=== PATIENT | female | born 1995 | race Caucasian/White ===

== ENCOUNTER → 2019-02-24 | Outpatient (CLI) | payer BC ==
--- NOTE | 2019-02-24 15:40 | Diagnostic Imaging Report ---
INDICATION: Low back pain. Time of exam 1:00 p.m. Five views of the lumbar spine were obtained. FINDINGS: Curvature and alignment of the lumbar spine is normal. Vertebral body heights and disc spaces are fairly well-maintained apart from mild degenerative changes of L5-S1. No fracture or subluxation is seen. There is no spondylolysis or spondylolisthesis. IMPRESSION: Mild L5-S1 degenerative disc disease. No other significant abnormality is detected. Dictated by: Dictated on workstation # [id number]
== END ==
LOC: RAD FS 12:38
PROVIDERS: ATTEND Family Medicine
DX: M51.17 Intervertebral disc disorders with radiculopathy, lumbosacral region (principal)
CPT/HCPCS: 72110

== ENCOUNTER 2021-03-30 22:39 | Emergency (ER) | payer BC, MEDICAID ==
[~2021-03-30] VITALS: Ht 165 cm; Wt 72.0 kg
[2021-03-30 22:52] LABS: BASOPHILS # (AUTO) 0.1 10^3/uL (0.0-0.1); BASOPHILS % (AUTO) 1 % (0-10); EOSINOPHILS # (AUTO) 0.3 10^3/uL (0.0-0.3); EOSINOPHILS % (AUTO) 2 % (0-10); HEMATOCRIT 48 % (35-52); HEMOGLOBIN 17.1 G/DL (11.5-16.0); LYMPHOCYTES % (AUTO) 29 % (12-44); MEAN CORPUSCULAR HEMOGLOBIN 31 PG (25-34); MEAN CORPUSCULAR HGB CONC 36 G/DL (32-36); MEAN CORPUSCULAR VOLUME 88 FL (80-99); MEAN PLATELET VOLUME 10.3 FL (7.4-10.4); MONOCYTES # (AUTO) 0.8 X 10^3 (0.0-1.0); MONOCYTES % (AUTO) 5 % (0-12); NEUTROPHILS # (AUTO) 10.8 X 10^3 (1.8-7.8); NEUTROPHILS % (AUTO) 63 % (42-75); PLATELET COUNT 356 10^3/uL (130-400); WHITE BLOOD COUNT 17.1 10^3/uL (4.3-11.0)
[2021-03-30] MEDS ORDERED: NS IV 1000 ML 1,000 ML IV STA (22:56)
[2021-03-30] MEDS ORDERED: ASPIRIN 81 MG CHEW (CHILDREN'S ASA) PO STA (22:56)
[2021-03-30] MEDS ORDERED: PANTOPRAZOLE 40 MG (PROTONIX) VIAL IV STA (22:57)
[2021-03-30 23:03] LABS: INR 0.9 (0.8-1.4); PROTHROMBIN TIME PATIENT 12.6 SEC (12.2-14.7)
[2021-03-30 23:07] LABS: BACTERIA,URINE TRACE /HPF; BILIRUBIN,URINE NEGATIVE (NEGATIVE); CLARITY,URINE CLEAR; COLOR,URINE DARK YELLOW; GLUCOSE, URINE (UA) 3+ (NEGATIVE); KETONES,URINE NEGATIVE (NEGATIVE); LEUKOCYTE ESTERASE ,URINE NEGATIVE (NEGATIVE); NITRITE,URINE NEGATIVE (NEGATIVE); PROTEIN,URINE NEGATIVE (NEGATIVE); RBC,URINE 25-50 /HPF
[2021-03-30 23:08] LABS: ALANINE AMINOTRANSFERASE 30 U/L (0-55); ALKALINE PHOSPHATASE 166 U/L (40-136); BILIRUBIN,TOTAL 0.2 MG/DL (0.1-1.0); BUN/CREATININE RATIO 13; CALCIUM 9.6 MG/DL (8.5-10.1); CARBON DIOXIDE 25 MMOL/L (21-32); CHLORIDE 97 MMOL/L (98-107); CREATININE SERUM 0.53 MG/DL (0.60-1.30); GFR ESTIMATED > 60; GLUCOSE 373 MG/DL (70-105); SODIUM 137 MMOL/L (135-145); TOTAL PROTEIN 7.3 GM/DL (6.4-8.2)
[2021-03-30 23:09] LABS: ALBUMIN 4.4 GM/DL (3.2-4.5); LIPASE 27 U/L (8-78)
--- NOTE | 2021-03-30 23:10 | ED Chest Pain ---
General Chief Complaint: Chest Pain Stated Complaint: CHEST PAIN Nursing Triage Note: RPEORT CP ALL DAY OFF AND ON THAT LAST FOR ABOUT 5-6 MINS DREA AFTER EATING. SOB AND LEFT ARM TINGLING Nursing Sepsis Screen: No Definite Risk Source: patient, spouse History of Present Illness Date Seen by Provider: Mar 30, 2021 Time Seen by Provider: 22:43 Initial Comments 25-year-old female presenting with intermittent sharp chest pains and left arm tingling throughout the day. She also had shortness of breath when this happened. She would have symptoms worse after eating. It also seem to be worse with sitting at the computer. She had some episodes that would last for a few minutes. She denies any sweating or diaphoresis. She has not had any fever or chills, abdominal pain, headache, blurry vision, pain with urination, diarrhea. Timing/Duration: 24 hours, intermittent, gone now Severity/Quality: moderate Location: substernal Radiation: arms (Left arm) Activities at Onset: none Prior CP/Workup: no prior chest pain, no prior cardiac workup ASA po MANAGER GAMES: No NTG SL MANAGER GAMES: No Associated Symptoms: No abdominal pain, No back pain, No diaphoresis, No dizziness, No edema, No fatigue, No fever/chills, No headache, No nausea/vomiting, No rash; shortness of breath; No swelling/lump in chest, No syncope Allergies and Home Medications Allergies Coded Allergies: No Known Drug Allergies (Unverified , 03/30/21) Patient Home Medication List Home Medication List Reviewed: Yes Review of Systems Review of Systems Constitutional: No chills, No fever EENTM: No Symptoms Reported Respiratory: See HPI Cardiovascular: See HPI Gastrointestinal: See HPI Genitourinary: See HPI Musculoskeletal: see HPI Skin: No rash Psychiatric/Neurological: Anxiety; Denies Headache Endocrine: No Symptoms Reported Past Kdtnwup-Rdvllz-Ivcapr Hx Past Med/Social Hx: Reviewed Nursing Past Med/Soc Hx Patient Social History Alcohol Use: Denies Use Smoking Status: Unknown if Ever Smoked Recent Infectious Disease Expo: No Recent Hopitalizations: No Seasonal Allergies Seasonal Allergies: No Past Medical History Surgeries: No Respiratory: No Cardiac: No Neurological: No Genitourinary: No Gastrointestinal: No Musculoskeletal: No Endocrine: No HEENT: No Cancer: No Psychosocial: No Integumentary: No Blood Disorders: No Physical Exam Vital Signs Vital Signs - First Documented 03/30/21 22:47 Temp 37.1 Pulse 107 Resp 16 B/P (MAP) 157/98 (117) Pulse Ox 99 O2 Delivery Room Air Capillary Refill : Less Than 3 Seconds Height, Weight, BMI Height: '" Weight: lbs. oz. kg; 26.00 BMI Method: General Appearance: No Apparent Distress, WD/WN HEENT: PERRL/EOMI, Pharynx Normal Neck: Full Range of Motion, Non Tender, Supple Respiratory: Chest Non Tender, Lungs Clear, Normal Breath Sounds, No Accessory Muscle Use, No Respiratory Distress Cardiovascular: Normal Peripheral Pulses, Tachycardia Gastrointestinal: Normal Bowel Sounds, No Pulsatile Mass, Non Tender, Soft Rectal: Deferred Extremity: Normal Capillary Refill, Normal Inspection, Normal Range of Motion, Non Tender, No Calf Tenderness, No Pedal Edema Neurologic/Psychiatric: Alert, Oriented x3, gate watch II-XII Norm as Tested Skin: Warm/Dry Progress/Results/Core Measures Results/Orders Lab Results Laboratory Tests Test 03/30/21 22:45 03/30/21 22:57 03/31/21 00:08 Range/Units White Blood Count 17.1 H 4.3-11.0 10^3/uL Red Blood Count 5.43 4.35-5.85 10^6/uL Hemoglobin 17.1 H 11.5-16.0 G/DL Hematocrit 48 35-52 % Mean Corpuscular Volume 88 80-99 FL Mean Corpuscular Hemoglobin 31 25-34 PG Mean Corpuscular Hemoglobin Concent 36 32-36 G/DL Red Cell Distribution Width 11.4 10.0-14.5 % Platelet Count 356 130-400 10^3/uL Mean Platelet Volume 10.3 7.4-10.4 FL Immature Granulocyte % (Auto) 1 % Neutrophils (%) (Auto) 63 42-75 % Lymphocytes (%) (Auto) 29 12-44 % Monocytes (%) (Auto) 5 0-12 % Eosinophils (%) (Auto) 2 0-10 % Basophils (%) (Auto) 1 0-10 % Neutrophils # (Auto) 10.8 H 1.8-7.8 X 10^3 Lymphocytes # (Auto) 5.0 H 1.0-4.0 X 10^3 Monocytes # (Auto) 0.8 0.0-1.0 X 10^3 Eosinophils # (Auto) 0.3 0.0-0.3 10^3/uL Basophils # (Auto) 0.1 0.0-0.1 10^3/uL Immature Granulocyte # (Auto) 0.1 0.0-0.1 10^3/uL Neutrophils % (Manual) 71 % Lymphocytes % (Manual) 26 % Monocytes % (Manual) 2 % Band Neutrophils 1 % Prothrombin Time 12.6 12.2-14.7 SEC INR Comment 0.9 0.8-1.4 Activated Partial Thromboplast Time 26 24-35 SEC Sodium Level 137 135-145 MMOL/L Potassium Level 4.0 3.6-5.0 MMOL/L Chloride Level 97 L 98-107 MMOL/L Carbon Dioxide Level 25 21-32 MMOL/L Anion Gap 15 H 5-14 MMOL/L Blood Urea Nitrogen 7 7-18 MG/DL Creatinine 0.53 L 0.60-1.30 MG/DL Estimat Glomerular Filtration Rate > 60 BUN/Creatinine Ratio 13 Glucose Level 373 H 70-105 MG/DL Calcium Level 9.6 8.5-10.1 MG/DL Corrected Calcium 9.3 8.5-10.1 MG/DL Magnesium Level 2.0 1.6-2.4 MG/DL Total Bilirubin 0.2 0.1-1.0 MG/DL Aspartate Amino Transf (AST/SGOT) 18 5-34 U/L Alanine Aminotransferase (ALT/SGPT) 30 0-55 U/L Alkaline Phosphatase 166 H 40-136 U/L Troponin I < 0.30 <0.30 NG/ML Pro-B-Type Natriuretic Peptide 7.3 <75.0 PG/ML Total Protein 7.3 6.4-8.2 GM/DL Albumin 4.4 3.2-4.5 GM/DL Lipase 27 8-78 U/L Urine Color DARK YELLOW Urine Clarity CLEAR Urine pH 7.0 5-9 Urine Specific Ewen 10.15 1.016-1.022 Urine Protein NEGATIVE NEGATIVE Urine Glucose (UA) 3+ H NEGATIVE Urine Ketones NEGATIVE NEGATIVE Urine Nitrite NEGATIVE NEGATIVE Urine Bilirubin NEGATIVE NEGATIVE Urine Urobilinogen 0.2 < = 1.0 MG/DL Urine Leukocyte Esterase NEGATIVE NEGATIVE Urine RBC (Auto) 3+ H NEGATIVE Urine RBC 25-50 H /HPF Urine WBC NONE /HPF Urine Squamous Epithelial Cells 5-10 /HPF Urine Crystals NONE /LPF Urine Bacteria TRACE /HPF Urine Casts NONE /LPF Urine Mucus NEGATIVE /LPF Urine Culture Indicated NO Urine Opiates Screen NEGATIVE NEGATIVE Urine Oxycodone Screen NEGATIVE NEGATIVE Urine Methadone Screen NEGATIVE NEGATIVE Urine Propoxyphene Screen NEGATIVE NEGATIVE Urine Barbiturates Screen NEGATIVE NEGATIVE Ur Tricyclic Antidepressants Screen NEGATIVE NEGATIVE Urine Phencyclidine Screen NEGATIVE NEGATIVE Urine Amphetamines Screen NEGATIVE NEGATIVE Urine Methamphetamines Screen NEGATIVE NEGATIVE Urine Benzodiazepines Screen NEGATIVE NEGATIVE Urine Cocaine Screen NEGATIVE NEGATIVE Urine Cannabinoids Screen NEGATIVE NEGATIVE Glucometer 288 H 70-110 MG/DL My Orders Orders - AYDE LLANES MD Cbc With Automated Diff (03/30/21 22:44) Magnesium (03/30/21 22:44) Chest 1 View Ap/Pa Only (03/30/21 22:44) Ekg Tracing (03/30/21 22:44) Comprehensive Metabolic Panel (03/30/21 22:44) Protime With Inr (03/30/21 22:44) Partial Thromboplastin Time (03/30/21 22:44) O2 (03/30/21 22:44) Monitor-Rhythm Ecg Trace Only (03/30/21 22:44) Ed Iv/Invasive Line Start (03/30/21 22:44) Lipase (03/30/21 22:44) Troponin I Fs (03/30/21 22:44) Probnp Fs (03/30/21 22:44) Ua Culture If Indicated (03/30/21 22:44) Urine Bedside (03/30/21 22:44) Drug Screen Stat (Urine) (03/30/21 22:44) Manual Differential (03/30/21 22:45) Ns Iv 1000 Ml (Sodium Chloride 0.9%) (03/30/21 22:56) Aspirin Chewable Tablet (Baby Aspirin Ch (03/30/21 22:56) Pantoprazole Injection (Protonix Injecti (03/30/21 22:57) Accucheck Stat ONCE (03/31/21 00:09) Vital Signs/I&O 03/30/21 03/31/21 22:47 00:11 Temp 37.1 36.1 Pulse 107 84 Resp 16 16 B/P (MAP) 157/98 (117) 120/62 Pulse Ox 99 99 O2 Delivery Room Air Room Air Blood Pressure Mean: 117 Progress Progress Note #1: Progress Note Obtain electrocardiogram as well as labs. Placed on cardiac telemetry monitoring. Initial monitoring shows sinus tachycardia without ectopy or ST e levation. Initial electrocardiogram shows sinus tachycardia without ST elevation. We will give IV fluids for hydration, aspirin with her complaint of chest pain, treat for possible GERD as well. The differential diagnosis includes myocardial infarction, pneumonia, cardiac arrhythmia, GERD with esophagitis Progress Note #2: Progress Note Labs appear stable without acute significant immunity. She does have elevated glucose in the 370 range with glucose present in the urine. There are no definite infiltrate or acute process on the chest x-ray on my review of her 1 view chest x-ray film. Patient reports to continue to have no recurrent pain or problems while here in the ED. Her heart rate improved with treatment here in the ED. In regards to her elevated glucose the patient reports that she chronically has that since . A repeat Accu-Chek after fluids and treatment show her sugar was 288 from 373 on the blood work. Encourage patient to follow-up with the clinic she may need to be on medication for hyperglycemia and diabetes. Initial ECG Impression Date: Mar 30, 2021 Initial ECG Impression Time: 22:44 Initial ECG Rate: 109 Initial ECG Rhythm: S.Tach Initial ECG Comparisson: No Previous ECG Available Comment Sinus tachycardia with a heart rate 109 bpm. MI interval 170 ms. QT interval 296 ms with a QTc interval 399 ms. There is no acute ST elevation. No prior tracing available for comparison. Diagnostic Imaging Diagonstic Imaging: Xray Plain Films/CT/US/NM/MRI: chest Comments My review of her 1 view chest x-ray she has no acute infiltrate or no acute process Reviewed: Reviewed by Me Departure Impression Primary Impression: Chest pain at rest Additional Impressions: Hyperglycemia Stress Dehydration Tobacco abuse Disposition: 01 HOME, SELF-CARE Condition: Improved Departure-Patient Inst. Decision time for Depature: 00:10 Referrals: [facility] (PCP) Primary Care Physician HANNAH TOM APRN (Family) Primary Care Physician Patient Instructions: Chest Pain, Adult ED, Dehydration, Adult ED, Hyperglycemia, Adult (DC), Quitting Smoking ED, Stress Add. Discharge Instructions: Try to watch your diet and follow a low fat low sodium diet. Limit the sugar and carbohydrate intake. Check with the clinic for follow up and you would likely benefit from being on a medicine for your elevated glucose. The clinic may want to run some additional testing first but at this point you would count as being diabetic and need to control your diet and probably benefit from medicines. Stopping smoking will help with your breathing and chest pains. All discharge instructions reviewed with patient and/or family. Voiced understanding. AYDE LLANES MD Mar 30, 2021 23:10
[2021-03-30 23:12] LABS: BAND NEUTROPHILS 1 %; LYMPHOCYTES % (MANUAL) 26 %; MONOCYTES % (MANUAL) 2 %; NEUTROPHILS % (MANUAL) 71 %
[2021-03-30 23:14] LABS: AMPHETAMINE SCREEN, URINE NEGATIVE (NEGATIVE); BARBITURATE SCREEN URINE NEGATIVE (NEGATIVE); BENZODIAZEPINES SCREEN URINE NEGATIVE (NEGATIVE); CANNABINOID SCREEN, URINE NEGATIVE (NEGATIVE); COCAINE SCREEN URINE NEGATIVE (NEGATIVE); METHADONE STAT NEGATIVE (NEGATIVE); METHAMPHETAMINE SCREEN URINE S NEGATIVE (NEGATIVE); OPIATE SCREEN URINE NEGATIVE (NEGATIVE); OXYCODONE STAT NEGATIVE (NEGATIVE); PROPOXYPHENE STAT NEGATIVE (NEGATIVE); TRICYCLIC ANTIDEPRESSANTS SCRE NEGATIVE (NEGATIVE)
[2021-03-31 00:11] VITALS: BP 120/62
--- NOTE | 2021-03-31 06:48 | Diagnostic Imaging Report ---
EXAMINATION: Chest radiograph, portable AP view. DATE: 03/30/2021 10:58 PM INDICATION: 25-year-old female, chest pain. COMPARISON: None. FINDINGS: Heart size and mediastinal contours are unremarkable. There is no identified pneumothorax. There is no large pleural effusion. There is no identified focal airspace consolidation. IMPRESSION: No identified acute cardiopulmonary abnormality. Dictated by: Dictated on workstation # [id number]
== END 2021-03-31 00:16 | disposition home or self-care (01) ==
LOC: EDUNIT# 22:39 → ER FS 22:42
DX: R07.9 Chest pain, unspecified (principal); R73.9 Hyperglycemia, unspecified; F43.9 Reaction to severe stress, unspecified; E86.0 Dehydration; F17.200 Nicotine dependence, unspecified, uncomplicated
CPT/HCPCS: 36415; 71045; 80053; 80306; 81000; 82947; 83690; 83735; 83880; 84484; 84703; 85007; 85027; 85610; 85730; 93005; 93041

== ENCOUNTER 2021-04-10 22:54 | Emergency (ER) | payer BC, MEDICAID ==
[~2021-04-10] VITALS: Ht 167.7 cm; Wt 88.0 kg
--- NOTE | 2021-04-10 22:59 | ED Chest Pain ---
General Chief Complaint: Chest Pain Stated Complaint: CP History of Present Illness Date Seen by Provider: Apr 10, 2021 Time Seen by Provider: 22:55 Initial Comments 25 old female presents with chest pain occurring intermittently for the past 2 weeks. Pain is sudden and sharp and lasts from 5 minutes most of the time, but has had an episode that lasted for 30 minutes. She states the longer episode ended with vomiting. Denies History or Past Medical History of heart problems. She does smoke cigarettes. Denies recent illness, fever or chills. Seen in this ER for the same thing 11 days ago with a negative work-up. Saw her PCP and plans to see a Photocopying Equipment Repairer for further studies. Allergies and Home Medications Allergies Coded Allergies: No Known Drug Allergies (Unverified , 03/30/21) Patient Home Medication List Home Medication List Reviewed: Yes Review of Systems Review of Systems Constitutional: No fever, No malaise, No weakness Cardiovascular: See HPI, Chest Pain (resolved on arrival); Denies Irregular Heart Rate, Denies Lightheadedness, Denies Palpitations, Denies Syncope Gastrointestinal: Abdominal Pain (occasional, upper abd. pain); Denies Constipated, Denies Diarrhea; Nausea, Vomiting Genitourinary: Denies Burning, Denies Flank Pain, Denies Hematuria Musculoskeletal: No joint pain, No joint swelling, No muscle pain Skin: No change in color, No rash Psychiatric/Neurological: Denies Headache; Numbness (occasionally of her extremities with episodes of CP); Denies Weakness Past Egkkjys-Niptuo-Nerxqv Hx Past Med/Social Hx: Reviewed Nursing Past Med/Soc Hx Patient Social History Recent Hopitalizations: No Seasonal Allergies Seasonal Allergies: No Past Medical History Surgeries: No Respiratory: No Cardiac: No Neurological: No Genitourinary: No Gastrointestinal: No Musculoskeletal: No Endocrine: No HEENT: No Cancer: No Psychosocial: No Integumentary: No Blood Disorders: No Physical Exam Vital Signs Vital Signs - First Documented 04/10/21 22:56 Temp 36.9 Pulse 103 Resp 18 B/P (MAP) 143/91 (108) O2 Delivery Room Air Capillary Refill : Height, Weight, BMI Height: '" Weight: lbs. oz. kg; 26.00 BMI Method: General Appearance: No Apparent Distress, WD/WN HEENT: PERRL/EOMI Neck: Non Tender, Supple Respiratory: Chest Non Tender, Lungs Clear Cardiovascular: Regular Rate, Rhythm, No JVD, Normal Peripheral Pulses Gastrointestinal: Normal Bowel Sounds, No Pulsatile Mass, Non Tender Extremity: Normal Capillary Refill, Non Tender Neurologic/Psychiatric: Alert, Oriented x3, No Motor/Sensory Deficits, Normal Mood/Affect Skin: Normal Color, Warm/Dry Progress/Results/Core Measures Results/Orders Lab Results Laboratory Tests Test 04/10/21 23:03 Range/Units White Blood Count 17.6 H 4.3-11.0 10^3/uL Red Blood Count 5.34 4.35-5.85 10^6/uL Hemoglobin 16.7 H 11.5-16.0 G/DL Hematocrit 47 35-52 % Mean Corpuscular Volume 88 80-99 FL Mean Corpuscular Hemoglobin 31 25-34 PG Mean Corpuscular Hemoglobin Concent 36 32-36 G/DL Red Cell Distribution Width 11.5 10.0-14.5 % Platelet Count 366 130-400 10^3/uL Mean Platelet Volume 10.3 7.4-10.4 FL Immature Granulocyte % (Auto) 1 % Neutrophils (%) (Auto) 67 42-75 % Lymphocytes (%) (Auto) 24 12-44 % Monocytes (%) (Auto) 5 0-12 % Eosinophils (%) (Auto) 2 0-10 % Basophils (%) (Auto) 1 0-10 % Neutrophils # (Auto) 11.9 H 1.8-7.8 X 10^3 Lymphocytes # (Auto) 4.3 H 1.0-4.0 X 10^3 Monocytes # (Auto) 0.9 0.0-1.0 X 10^3 Eosinophils # (Auto) 0.3 0.0-0.3 10^3/uL Basophils # (Auto) 0.1 0.0-0.1 10^3/uL Immature Granulocyte # (Auto) 0.1 0.0-0.1 10^3/uL Neutrophils % (Manual) 64 % Lymphocytes % (Manual) 10 % Monocytes % (Manual) 9 % Eosinophils % (Manual) 2 % Basophils % (Manual) 1 % Band Neutrophils 2 % Atypical Lymphocytes 12 % Blood Morphology Comment NORMAL My Orders Orders - ROVENSTSAL GUERRERO DO Cbc With Automated Diff (04/10/21 22:57) Comprehensive Metabolic Panel (04/10/21 22:57) Troponin I Fs (04/10/21 22:57) Ekg Tracing (04/10/21 22:57) Chest 1 View Ap/Pa Only (04/10/21 22:57) Ed Iv/Invasive Line Start (04/10/21 22:57) Manual Differential (04/10/21 23:03) Vital Signs/I&O 04/10/21 04/10/21 22:56 23:04 Temp 36.9 Pulse 103 Resp 18 B/P (MAP) 143/91 (108) O2 Delivery Room Air Room Air Initial ECG Impression Date: Apr 10, 2021 Initial ECG Impression Time: 22:55 Initial ECG Rate: 100 Initial ECG Rhythm: Normal Sinus Initial ECG Intervals: Normal Initial ECG Impression: Normal Diagnostic Imaging Diagonstic Imaging: Xray Plain Films/CT/US/NM/MRI: chest Comments no acute process, small area of atelectasis, left base. Departure Impression Primary Impression: Chest pain Qualified Codes: R07.9 - Chest pain, unspecified Disposition: 01 HOME, SELF-CARE Condition: Stable Departure-Patient Inst. Referrals: [facility] [place] (PCP) Primary Care Physician HANNAH TOM APRN (Family) Primary Care Physician KEAGAN JALLOH MD FACP FACC CCDS Patient Instructions: Chest Pain (DC) Add. Discharge Instructions: Follow up with your PCP tomorrow regarding further episodes of chist pain. You are advised to see a Photocopying Equipment Repairer for consideration of further testing regarding your episodes of chest pain. Call Dr Tee office listed above All discharge instructions reviewed with patient and/or family. Voiced understanding. Scripts Famotidine (Pepcid) 20 Mg Tablet 20 MG PO BID, #30 TAB Prov: SAL HUTTON DO 04/10/21 SAL HUTTON DO Apr 10, 2021 22:59
[2021-04-10 23:12] LABS: HEMOGLOBIN 16.7 G/DL (11.5-16.0); MEAN CORPUSCULAR HEMOGLOBIN 31 PG (25-34); WHITE BLOOD COUNT 17.6 10^3/uL (4.3-11.0)
[2021-04-10 23:13] LABS: BASOPHILS # (AUTO) 0.1 10^3/uL (0.0-0.1); BASOPHILS % (AUTO) 1 % (0-10); EOSINOPHILS # (AUTO) 0.3 10^3/uL (0.0-0.3); EOSINOPHILS % (AUTO) 2 % (0-10); HEMATOCRIT 47 % (35-52); LYMPHOCYTES # (AUTO) 4.3 X 10^3 (1.0-4.0); LYMPHOCYTES % (AUTO) 24 % (12-44); MEAN CORPUSCULAR HGB CONC 36 G/DL (32-36); MEAN CORPUSCULAR VOLUME 88 FL (80-99); MEAN PLATELET VOLUME 10.3 FL (7.4-10.4); MONOCYTES # (AUTO) 0.9 X 10^3 (0.0-1.0); MONOCYTES % (AUTO) 5 % (0-12); NEUTROPHILS # (AUTO) 11.9 X 10^3 (1.8-7.8); NEUTROPHILS % (AUTO) 67 % (42-75); PLATELET COUNT 366 10^3/uL (130-400)
[2021-04-10 23:23] LABS: ATYPICAL LYMPHOCYTES 12 %; BAND NEUTROPHILS 2 %; BASOPHILS % (MANUAL) 1 %; EOSINOPHILS % (MANUAL) 2 %; LYMPHOCYTES % (MANUAL) 10 %; MONOCYTES % (MANUAL) 9 %; NEUTROPHILS % (MANUAL) 64 %
[2021-04-10 23:24] LABS: RBC MORPH NORMAL
[2021-04-10 23:32] LABS: POTASSIUM 3.8 MMOL/L (3.6-5.0); SODIUM 136 MMOL/L (135-145)
[2021-04-10 23:33] LABS: ALANINE AMINOTRANSFERASE 26 U/L (0-55); ALBUMIN 4.3 GM/DL (3.2-4.5); ALKALINE PHOSPHATASE 162 U/L (40-136); BILIRUBIN,TOTAL 0.2 MG/DL (0.1-1.0); BUN/CREATININE RATIO 13; CARBON DIOXIDE 27 MMOL/L (21-32); CHLORIDE 98 MMOL/L (98-107); CREATININE SERUM 0.54 MG/DL (0.60-1.30); GFR ESTIMATED > 60; GLUCOSE 246 MG/DL (70-105)
[2021-04-10] MEDS ORDERED: FAMO-119 PO (23:34)
[2021-04-10 23:41] VITALS: BP 131/75
[2021-04-10] MEDS ORDERED: FAMOTIDINE 20MG/2ML IV (PEPCID) IVP ONE (23:45)
--- NOTE | 2021-04-11 07:41 | Diagnostic Imaging Report ---
CHEST 1 VIEW AP/PA ONLY Indication: Chest pain. Comparison: 03/30/2021 Findings: No focal airspace disease in the visualized lungs. Please note that the posterior lower lobes are poorly evaluated by portable radiography. No pleural effusion or pneumothorax. Normal cardiomediastinal silhouette. Impression: 1. No acute cardiopulmonary process by portable radiography. Dictated by: Dictated on workstation # [id number]
== END 2021-04-10 23:41 | disposition home or self-care (01) ==
LOC: EDUNIT# 22:56 → ER FS 22:57
DX: R07.9 Chest pain, unspecified (principal); F17.210 Nicotine dependence, cigarettes, uncomplicated
CPT/HCPCS: 36415; 71045; 80053; 84484; 85007; 85027; 93005

== ENCOUNTER 2023-07-02 13:34 | Emergency (ER) | payer BC, MEDICAID ==
[~2023-07-02] VITALS: Ht 167 cm; Wt 80.0 kg
[~2023-07-02 13:34] MED LIST: FAMO-119 PO
--- NOTE | 2023-07-02 13:53 | ED Back Pain ---
General Chief Complaint: Back Problems Stated Complaint: RT LEG PAIN Nursing Triage Note: PT HAS CHRONIC BACK PAIN AND IS SCHEDULED TO HAVE SURGERY ON HER SPLINE IN [place] ON THURSDAY. RIGHT LOWER SIDE Source of Information: Patient Exam Limitations: No Limitations History of Present Illness Date Seen by Provider: Jul 02, 2023 Time Seen by Provider: 13:43 Initial Comments This 28-year-old young lady presents to the emergency room with exacerbation of chronic low back pain with radicular symptoms running down her right leg. She also reports urinary frequency. She has had some constipation but is still having bowel movements and had a bowel movement earlier today. She notes diagnosis of degenerative disc disease, spinal stenosis, and herniated disc in the lumbar spine. She recently had an MRI performed in [place] and was scheduled to have surgery with Dr. Neeru Davidson next week. Surgery has been postponed due to uncontrolled diabetes with elevated A1c. She reports engaging in physical therapy which she believes made her symptoms worse. She has been taking Tylenol only. She has no prescription pain medications. She is not presently treating her diabetes and is relying on diet and lifestyle changes for blood sugar control. She has no groin numbness or leg paralysis. She has had recent urinary frequency. Allergies and Home Medications Allergies Coded Allergies: sulfamethoxazole (Verified Allergy, Mild, Finger swelling, 07/02/23) trimethoprim (Verified Allergy, Mild, Finger swelling, 07/02/23) Patient Home Medication List Home Medication List Reviewed: Yes Cyclobenzaprine HCl (Cyclobenzaprine HCl) 10 Mg Tablet, 10 MG PO TID PRN for SPASMS Prescribed by: MAIRA HARDY on 07/02/23 1549 Famotidine (Pepcid) 20 Mg Tablet, 20 MG PO BID Prescribed by: SAL HUTTON on 04/10/21 2334 Tramadol HCl (Tramadol HCl) 50 Mg Tablet, 50 MG PO Q6H PRN for PAIN BREAKTROUGH Prescribed by: MAIRA HARDY on 07/02/23 1550 Review of Systems Constitutional: no symptoms reported EENTM: no symptoms reported Respiratory: no symptoms reported Cardiovascular: no symptoms reported Gastrointestinal: no symptoms reported Genitourinary: see HPI : No Musculoskeletal: see HPI Skin: no symptoms reported Psychiatric/Neurological: See HPI Past Rzhlvnm-Snejgb-Zbaadt Hx Patient Social History Tobacco Use?: Yes Tobacco type used: Cigarettes Smoking Status: Current Everyday Smoker Use of E-Cig and/or Vaping dev: No Substance use?: No Alcohol Use?: No Pt feels they are or have been: No Seasonal Allergies Seasonal Allergies: No Past Medical History Surgeries: Yes (Dental) Respiratory: No Cardiac: No Neurological: No : No Genitourinary: No Gastrointestinal: No Musculoskeletal: Yes (Spinal stenosis, degenerative disc disease, bulging lumbar disc) Chronic Back Pain Endocrine: Yes Diabetes, Non-Insulin dep HEENT: No Cancer: No Psychosocial: No Integumentary: No Blood Disorders: No Physical Exam Vital Signs Vital Signs - First Documented 07/02/23 13:43 Temp 36.1 Pulse 107 Resp 16 B/P (MAP) 154/79 (104) Pulse Ox 99 O2 Delivery Room Air Capillary Refill : Less Than 3 Seconds Height, Weight, BMI Height: '" Weight: lbs. oz. 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 Norm as Tested, Abnormal Cerebellar Tests, Other (Anxious, tearful) Skin: Normal Color, Warm/Dry Progress/Results/Core Measures Results/Orders Lab Results Laboratory Tests Test 07/02/23 14:16 07/02/23 14:47 Range/Units White Blood Count 14.0 H 4.3-11.0 10^3/uL Red Blood Count 5.20 H 3.80-5.11 10^6/uL Hemoglobin 16.1 H 11.5-16.0 g/dL Hematocrit 46 35-52 % Mean Corpuscular Volume 88 80-99 fL Mean Corpuscular Hemoglobin 31 25-34 pg Mean Corpuscular Hemoglobin Concent 35 32-36 g/dL Red Cell Distribution Width 11.3 10.0-14.5 % Platelet Count 327 130-400 10^3/uL Mean Platelet Volume 10.4 9.0-12.2 fL Immature Granulocyte % (Auto) 0 % Neutrophils (%) (Auto) 67 42-75 % Lymphocytes (%) (Auto) 25 12-44 % Monocytes (%) (Auto) 5 0-12 % Eosinophils (%) (Auto) 2 0-10 % Basophils (%) (Auto) 1 0-10 % Neutrophils # (Auto) 9.4 H 1.8-7.8 X 10^3 Lymphocytes # (Auto) 3.5 1.0-4.0 X 10^3 Monocytes # (Auto) 0.7 0.0-1.0 X 10^3 Eosinophils # (Auto) 0.2 0.0-0.3 10^3/uL Basophils # (Auto) 0.1 0.0-0.1 10^3/uL Immature Granulocyte # (Auto) 0.1 0.0-0.1 10^3/uL Sodium Level 135 135-145 MMOL/L Potassium Level 3.8 3.6-5.0 MMOL/L Chloride Level 101 98-107 MMOL/L Carbon Dioxide Level 22 21-32 MMOL/L Anion Gap 12 5-14 MMOL/L Blood Urea Nitrogen 9 7-18 MG/DL Creatinine 0.50 L 0.60-1.30 MG/DL Estimat Glomerular Filtration Rate 130 BUN/Creatinine Ratio 18 Glucose Level 253 H 70-105 MG/DL Calcium Level 9.8 8.5-10.1 MG/DL Magnesium Level 2.1 1.6-2.4 MG/DL Serum Test, Qualitative NEGATIVE NEGATIVE Urine Color YELLOW Urine Clarity SLIGHTLY CLOUDY Urine pH 6.5 5-9 Urine Specific Marshall 1.025 H 1.016-1.022 Urine Protein NEGATIVE NEGATIVE Urine Glucose (UA) 2+ H NEGATIVE Urine Ketones TRACE H NEGATIVE Urine Nitrite POSITIVE H NEGATIVE Urine Bilirubin NEGATIVE NEGATIVE Urine Urobilinogen 0.2 < = 1.0 MG/DL Urine Leukocyte Esterase NEGATIVE NEGATIVE Urine RBC (Auto) NEGATIVE NEGATIVE Urine RBC 0-2 /HPF Urine WBC 5-10 H /HPF Urine Squamous Epithelial Cells 5-10 /HPF Urine Crystals NONE /LPF Urine Bacteria LARGE H /HPF Urine Casts NONE /LPF Urine Mucus SMALL H /LPF Urine Culture Indicated YES My Orders Orders - MAIRA HERMAN MD Basic Metabolic Panel (07/02/23 13:51) Cbc With Automated Diff (07/02/23 13:51) Hcg,Qualitative Serum (07/02/23 13:51) Magnesium (07/02/23 13:51) Ed Iv/Invasive Line Start (07/02/23 13:51) Ketorolac Injection (Ketorolac Injection (07/02/23 14:00) Fentanyl Injection (Fentanyl Injection (07/02/23 14:00) Ua Culture If Indicated (07/02/23 13:51) Urine Culture (07/02/23 14:47) Tramadol Tablet (Ultram Tablet) (07/02/23 15:45) Medications Given in ED Current Medications Medications Dose Ordered Sig/Main Route Start Time Stop Time Status Last Admin Dose Admin Fentanyl Citrate 50 mcg ONCE ONCE IVP 07/02/23 14:00 07/02/23 14:01 DC 07/02/23 14:07 50 MCG Ketorolac Tromethamine 30 mg ONCE ONCE IVP 07/02/23 14:00 07/02/23 14:01 DC 07/02/23 14:07 30 MG Tramadol HCl 50 mg ONCE ONCE PO 07/02/23 15:45 07/02/23 15:46 DC 07/02/23 15:44 50 MG Vital Signs/I&O 07/02/23 07/02/23 13:43 15:51 Temp 36.1 36.1 Pulse 107 91 Resp 16 16 B/P (MAP) 154/79 (104) 142/68 Pulse Ox 99 99 O2 Delivery Room Air Room Air Blood Pressure Mean: 104 Progress Progress Note : Progress Note Patient was treated with IV Toradol and fentanyl. She had good pain control initially but the pain control was waning as the fentanyl wore off. She was further treated with Ultram. Labs were obtained and interpreted by me. CBC was notable for leukocytosis of 14. BMP was notable for glucose of 253. Labs were otherwise unremarkable. Urinalysis was suggestive of urinary tract infection with 5-10 WBC, nitrate positive, and large bacteria. UTI was treated with antibiotics. Ultram and Flexeril were prescribed for control of symptoms refractory to OTC medicines. See discharge instructions for further discussion. Departure Impression Primary Impression: Low back pain Qualified Codes: M54.41 - Lumbago with sciatica, right side Additional Impression: Urinary tract infection Qualified Codes: N39.0 - Urinary tract infection, site not specified Disposition: HOME, SELF-CARE Condition: Improved Departure-Patient Inst. Decision time for Depature: 15:42 Referrals: CAMERON CALVIN APRN (PCP) Primary Care Physician [facility] (Family) Primary Care Physician Patient Instructions: Low Back Pain ED Add. Discharge Instructions: For primary pain control you may take ibuprofen up to 600 mg every 6 hours as needed and Tylenol (acetaminophen) up to 1000 mg every 6 hours as needed. Add Ultram (tramadol) as prescribed for breakthrough pain. Tramadol may cause drowsiness, so do not drive, operate machinery, or make important decisions on tramadol. Tramadol may also cause constipation, so you may wish to use a stool softener such as Colace while on tramadol. If you are already constipated, MiraLAX (polyethylene glycol) is recommended for treatment of constipation. You may use 2 or 3 doses a day until constipation resolves. You may use cyclobenzaprine for muscle spasms. Cyclobenzaprine may cause drowsiness, so use with caution. Follow-up with your primary care doctor for further pain management. Work with your primary care provider to lower your blood sugars and A1c. Your blood sugar in the emergency room was 253. Eat a diet very low in sugars and carbohydrates. Check your blood sugars fasting in the morning and 2 hours after each meal unless otherwise directed by your doctor. Log of these blood sugars and review them with your doctor. Complete your Augmentin antibiotic as previously prescribed to treat urinary tract infection. Your urine will be cultured, and you should review culture results with your doctor after 48 hours. Return to the emergency room if you have escalating pain despite following these instructions, numbness in your groin, paralysis of your legs, or loss of bowel or bladder function. All discharge instructions reviewed with patient and/or family. Voiced understanding. Scripts Cyclobenzaprine HCl (Cyclobenzaprine HCl) 10 Mg Tablet 10 MG PO TID PRN for SPASMS, #10 TAB Prov: MAIRA HERMAN MD 07/02/23 Tramadol HCl (Tramadol HCl) 50 Mg Tablet 50 MG PO Q6H PRN for PAIN BREAKTROUGH, #12 TAB Prov: MAIRA HERMAN MD 07/02/23 Copy Copies To 1: [facility] [place] Copies To 2: NEERU DAVIDSON JOSHUA T MD Jul 02, 2023 13:53
[2023-07-02] MEDS ORDERED: KETOROLAC INJ 30 MG/ML VIAL IVP ONE (14:00)
[2023-07-02] MEDS ORDERED: fentaNYL INJECTION 100 MCG/2 ML VIAL IVP ONE (14:00)
[2023-07-02 14:51] LABS: HEMATOCRIT 46 % (35-52); HEMOGLOBIN 16.1 g/dL (11.5-16.0); LYMPHOCYTES % (AUTO) 25 % (12-44); MEAN CORPUSCULAR HEMOGLOBIN 31 pg (25-34); MEAN CORPUSCULAR HGB CONC 35 g/dL (32-36); MEAN CORPUSCULAR VOLUME 88 fL (80-99); MEAN PLATELET VOLUME 10.4 fL (9.0-12.2); MONOCYTES % (AUTO) 5 % (0-12); NEUTROPHILS % (AUTO) 67 % (42-75); PLATELET COUNT 327 10^3/uL (130-400)
[2023-07-02 14:52] LABS: BASOPHILS # (AUTO) 0.1 10^3/uL (0.0-0.1); BASOPHILS % (AUTO) 1 % (0-10); EOSINOPHILS # (AUTO) 0.2 10^3/uL (0.0-0.3); EOSINOPHILS % (AUTO) 2 % (0-10); LYMPHOCYTES # (AUTO) 3.5 X 10^3 (1.0-4.0); MONOCYTES # (AUTO) 0.7 X 10^3 (0.0-1.0); NEUTROPHILS # (AUTO) 9.4 X 10^3 (1.8-7.8)
[2023-07-02 14:54] LABS: CALCIUM 9.8 MG/DL (8.5-10.1); CREATININE SERUM 0.5 MG/DL (0.60-1.30); POTASSIUM 3.8 MMOL/L (3.6-5.0)
[2023-07-02 14:55] LABS: MAGNESIUM 2.1 MG/DL (1.6-2.4)
[2023-07-02 15:15] LABS: CLARITY,URINE SLIGHTLY CLOUDY; COLOR,URINE YELLOW; GLUCOSE, URINE (UA) 2+ (NEGATIVE); KETONES,URINE TRACE (NEGATIVE); PH,URINE 6.5 (5-9); PROTEIN,URINE NEGATIVE (NEGATIVE)
[2023-07-02 15:16] LABS: BACTERIA,URINE LARGE /HPF; BILIRUBIN,URINE NEGATIVE (NEGATIVE); LEUKOCYTE ESTERASE ,URINE NEGATIVE (NEGATIVE); NITRITE,URINE POSITIVE (NEGATIVE); RBC,URINE 0-2 /HPF
[2023-07-02] MEDS ORDERED: CYCL10TA25 PO (15:49)
[2023-07-02] MEDS ORDERED: TRM50T PO (15:49)
[2023-07-02 15:51] VITALS: BP 142/68
== END 2023-07-02 15:54 | disposition home or self-care (01) ==
LOC: EDUNIT# 13:34 → ER FS 13:37
DX: M54.50 Low back pain, unspecified (principal); N39.0 Urinary tract infection, site not specified; E11.9 Type 2 diabetes mellitus without complications; F17.210 Nicotine dependence, cigarettes, uncomplicated; Z88.2 Allergy status to sulfonamides; Z28.310 Unvaccinated for COVID-19; Z87.39 Personal history of other diseases of the musculoskeletal system and connective tissue
CPT/HCPCS: 36415; 80048; 81000; 83735; 84703; 85025; 87077; 87088; 87186

== ENCOUNTER 2023-07-07 14:49 | Emergency (ER) | payer MEDICAID ==
[~2023-07-07] VITALS: Ht 167.7 cm; Wt 79.4 kg
[~2023-07-07 14:49] MED LIST changes: +CYCL10TA25 PO; +TRM50T PO
[2023-07-07 14:55] VITALS: BP 139/86
--- NOTE | 2023-07-07 14:58 | ED Back Pain ---
General Stated Complaint: BACK PAIN History of Present Illness Date Seen by Provider: Jul 07, 2023 Time Seen by Provider: 14:55 Initial Comments 28 yr F with PMH of DM2/ Spinal stenosis with right sided sciatica/ Disc degeneration/ herniated disc, is here with c/o chronic back pain radiating down her right leg. Pt washere a few days ago and was given Fentanyl, and discharged with Tramadol and Flexeril prescription. She has completed the prescription. Denies fever, bowel, bladder dysfunction, sensory loss, leg weakness.Pt is able to ambulate but is in pain. Allergies and Home Medications Allergies Coded Allergies: sulfamethoxazole (Verified Allergy, Mild, Finger swelling, 07/02/23) trimethoprim (Verified Allergy, Mild, Finger swelling, 07/02/23) Patient Home Medication List Home Medication List Reviewed: Yes Cyclobenzaprine HCl (Cyclobenzaprine HCl) 10 Mg Tablet, 10 MG PO TID PRN for SPASMS Prescribed by: MAIRA HARDY on 07/02/23 1549 Famotidine (Pepcid) 20 Mg Tablet, 20 MG PO BID Prescribed by: SAL HUTTON on 04/10/21 2334 Tramadol HCl (Tramadol HCl) 50 Mg Tablet, 50 MG PO Q6H PRN for PAIN BREAKTROUGH Prescribed by: MAIRA HARDY on 07/02/23 1550 Review of Systems Constitutional: no symptoms reported EENTM: no symptoms reported Respiratory: no symptoms reported Cardiovascular: no symptoms reported Gastrointestinal: no symptoms reported Genitourinary: no symptoms reported Musculoskeletal: back pain Skin: no symptoms reported Psychiatric/Neurological: No Symptoms Reported Past Jyclnlw-Dzaacj-Kbtsoc Hx Seasonal Allergies Seasonal Allergies: No Past Medical History Surgeries: Yes (Dental) Respiratory: No Cardiac: No Neurological: No Genitourinary: No Gastrointestinal: No Musculoskeletal: Yes (Spinal stenosis, degenerative disc disease, bulging lumbar disc) Chronic Back Pain Endocrine: Yes Diabetes, Non-Insulin dep HEENT: No Cancer: No Psychosocial: No Integumentary: No Blood Disorders: No Physical Exam Vital Signs Vital Signs - First Documented 07/07/23 14:55 Temp 36.6 Pulse 103 Resp 16 B/P (MAP) 139/86 (103) O2 Delivery Room Air Capillary Refill : Height, Weight, BMI Height: '" Weight: lbs. oz. kg; 28.00 BMI Method: General Appearance: Moderate Distress HEENT: PERRL/EOMI Neck: Full Range of Motion, Normal Inspection, Non Tender, Supple Back: Normal Inspection, Muscle Spasm (severe pyriformis muscleand right sided straight leg test positive. No saddle anesthesia. 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 Norm as Tested Skin: Normal Color Progress/Results/Core Measures Results/Orders My Orders Orders - ABDULLAHI MEIER MD Ketorolac Injection (Ketorolac Injection (07/07/23 15:15) Dexamethasone Injection (Dexamethasone (07/07/23 15:15) Acetaminophen Tablet (Acetaminophen Ta (07/07/23 15:30) Medications Given in ED Current Medications Medications Dose Ordered Sig/Main Route Start Time Stop Time Status Last Admin Dose Admin Acetaminophen 1,000 mg ONCE ONCE PO 07/07/23 15:30 07/07/23 15:31 DC 07/07/23 15:30 1,000 MG Dexamethasone Sodium Phosphate 10 mg ONCE ONCE IM 07/07/23 15:15 07/07/23 15:16 DC 07/07/23 15:23 10 MG Ketorolac Tromethamine 30 mg ONCE ONCE IM 07/07/23 15:15 07/07/23 15:16 DC 07/07/23 15:23 30 MG Vital Signs/I&O 07/07/23 14:55 Temp 36.6 Pulse 103 Resp 16 B/P (MAP) 139/86 (103) O2 Delivery Room Air Progress Progress Note : Progress Note ACUTE ON CHRONIC BACK PAIN: - Toradol im/ Dexamethasone 10mg im/ Tylenol 1000mg STAT in ER - Pt's neurosurgery clinic called in a refill for her Flexeril - Advised over the counter Lidoderm patches, keep on for 12 hours, and off for 12 hours. When off, then use Diclofenac cream - Follow up with neurosurgery clinic for pain management referral. - Advised heat application. - Advised Naproxen (Aleve) every 12 hours and Tylenol 650mg every 4 hours -The patient was seen in the ED, and treated appropriately to presentation at a specific point in time. Patient is informed that there is a possibility that disease and illness can evolve and change in acuity rapidly or slowly after patient is discharged from the ER. Precautionary advice given to the patient for immediate return to ER if symptoms worsen or do not resolve, and to seek emergency care sooner rather than later. Pt also advised on the importance of PCP follow up and compliance with management and follow up plan with PCP and/or specialist, as this is part of the management plan. Pt verbally expressed understanding. Departure Impression Primary Impression: Acute exacerbation of chronic low back pain Disposition: HOME, SELF-CARE Condition: Stable Departure-Patient Inst. Referrals: CAMERON CALVIN APRN (PCP) Primary Care Physician [facility] (Family) Primary Care Physician Patient Instructions: Chronic pain, Low back pain in adults Add. Discharge Instructions: - Pt's neurosurgery clinic called in a refill for her Flexeril - Advised over the counter Lidoderm patches, keep on for 12 hours, and off for 12 hours. When off, then use Diclofenac cream - Follow up with neurosurgery clinic for pain management referral. - Advised heat application. - Advised Naproxen (Aleve) every 12 hours and Tylenol 650mg every 4 hours Scripts Diclofenac Sodium (Diclofenac Sodium) 3 % Gel..gram. 100 GM TP HS for 10 Days, #1 EA Prov: ABDULLAHI MEIER MD 07/07/23 ABDULLAHI MEIER MD Jul 07, 2023 14:58
[2023-07-07] MEDS ORDERED: KETOROLAC INJ 30 MG/ML VIAL IM ONE (15:15)
[2023-07-07] MEDS ORDERED: dexAMETHasone INJ 10 MG/ML 1 ML VIAL IM ONE (15:15)
[2023-07-07] MEDS ORDERED: ACETAMINOPHEN 500 MG TABLET PO ONE (15:30)
[2023-07-07] MEDS ORDERED: DICL100G32 TP (15:48)
== END 2023-07-07 15:55 | disposition home or self-care (01) ==
LOC: EDUNIT# 14:49 → ER FS 14:51
DX: M54.50 Low back pain, unspecified (principal); G89.29 Other chronic pain; Z87.39 Personal history of other diseases of the musculoskeletal system and connective tissue; Z28.310 Unvaccinated for COVID-19
CPT/HCPCS: 99284